=== PATIENT | male | born 2000 | race Caucasian/White ===

== ENCOUNTER 2020-01-24 01:56 | Emergency (ER) | payer MEDICAID ==
[~2020-01-24] VITALS: Ht 172.7 cm; Wt 100.0 kg
[2020-01-24] MEDS ORDERED: KETOROLAC 60MG/2ML VIAL IM STA (02:28)
[2020-01-24 02:50] LABS: CHLORIDE 105 mEq/L (98-107)
[2020-01-24 02:55] LABS: ETHANOL BLOOD < 10 mg/dL
[2020-01-24 03:03] LABS: BASOPHILS % 0.5 % (0.0-2.0); EOSINOPHILS % 2.8 % (0.0-5.0); HEMOGLOBIN. 15.7 g/dL (14.0-18.0); LYMPHOCYTES % 37.5 % (20.0-50.0); MEAN CORPUSCULAR HEMOGLOBIN 29.1 pg (28.0-32.0); MEAN CORPUSCULAR VOLUME 85.1 fL (80.0-94.0); MEAN PLATELET VOLUME 8.9 fl (7.4-10.4); MONOCYTES % 6.5 % (2.0-8.0); NEUTROPHILS % 52.7 % (40.0-76.0); PLATELET 226 x1000/uL (130-400); RED BLOOD CELL COUNT 5.41 mill/uL (4.7-6.1)
[2020-01-24 03:31] LABS: CLARITY URINE CLEAR (CLEAR); COLOR URINE YELLOW (YELLOW); KETONES URINE NEGATIVE (NEGATIVE); LEUKOCYTE ESTERASE URINE NEGATIVE (NEGATIVE); NITRITE URINE NEGATIVE (NEGATIVE); OCCULT BLOOD URINE NEGATIVE (NEGATIVE); PH URINE 6.5 (4.5-8.0); PROTEIN URINE NEGATIVE (NEGATIVE); SPECIFIC GRAVITY URINE 1.023 (1.005-1.030); UROBILINOGEN URINE 0.2 E.U./dL (0.2-1.0)
[2020-01-24 03:41] LABS: *AMPHETAMINES SCREEN URINE NEGATIVE (NEGATIVE); *BARBITURATES SCREEN URINE NEGATIVE (NEGATIVE); *BENZODIAZEPINES SCREEN URINE NEGATIVE (NEGATIVE); *COCAINE SCREEN URINE NEGATIVE (NEGATIVE)
[2020-01-24 03:42] LABS: CANNABINOID URINE SCREEN PRESUMTIVE POSITIVE (NEGATIVE); METHADONE URINE SCREEN NEGATIVE (NEGATIVE); OPIATES URINE SCREEN NEGATIVE (NEGATIVE); PHENCYCLIDINE URINE SCREEN NEGATIVE (NEGATIVE)
[2020-01-24] MEDS ORDERED: DOCUSATE SODIUM 100MG CAPSULE PO ONE (04:00)
[2020-01-24 04:09] VITALS: BP 140/81
== END 2020-01-24 04:12 | disposition home or self-care (01) ==
LOC: ER 01:56
DX: R10.13 Epigastric pain (principal); R11.10 Vomiting, unspecified; F12.10 Cannabis abuse, uncomplicated; K59.00 Constipation, unspecified
CPT/HCPCS: 36415; 74018; 80053; 80305; 80320; 81003; 83690; 85025; 93005; 96372; 99285; J1885; G0480

== ENCOUNTER → 2020-04-08 | Emergency (ER) | payer MEDICAID ==
[~2020-04-08] VITALS: Ht 172.7 cm; Wt 97.0 kg
[~2020-04-08] MED LIST: DICYCLOMINE 10 MG/5 ML ORAL SYR PO STA; LACTULOSE 20G/30ML UDC PO ONE; MAGNESIUM CITRATE 300ML SOLUTION PO NR; MAGNESIUM CITRATE 300ML SOLUTION PO ONE; MAGNESIUM/ALUMINUM HYDROXIDE/SIMETHICONE 30ML UDC PO STA; VISCOUS LIDOCAINE 2% 15 ML UDC PO STA
[2020-04-08 14:48] VITALS: BP 142/87
== END ==
LOC: ER 14:40
DX: K59.00 Constipation, unspecified (principal); F12.10 Cannabis abuse, uncomplicated
CPT/HCPCS: 71045; 74018; 93005; 99284

== ENCOUNTER 2020-06-08 17:52 | Emergency (ER) | payer MEDICAID ==
[~2020-06-08] VITALS: Ht 172.7 cm; Wt 92.0 kg
[2020-06-08] MEDS ORDERED: SODIUM CHLORIDE 0.9% 1,000 ML IV ONE (18:45)
[2020-06-08] MEDS ORDERED: DIPHENHYDRAMINE 50MG/ML VIAL IV ONE (18:45)
[2020-06-08] MEDS ORDERED: METOCLOPRAMIDE HCL 10MG/2ML VIAL IV ONE (18:45)
[2020-06-08 19:09] LABS: BASOPHILS % 0.2 % (0.0-2.0); EOSINOPHILS % 3.1 % (0.0-5.0); HEMATOCRIT. 46.8 % (42.0-52.0); LYMPHOCYTES % 42.3 % (20.0-50.0); MEAN CORPUSCULAR HEMOGLOBIN 29.2 pg (28.0-32.0); MEAN CORPUSCULAR VOLUME 85.8 fL (80.0-94.0); MEAN PLATELET VOLUME 9.1 fl (7.4-10.4); MONOCYTES % 5.6 % (2.0-8.0); NEUTROPHILS % 48.8 % (40.0-76.0); PLATELET 206 x1000/uL (130-400); RED BLOOD CELL COUNT 5.46 mill/uL (4.7-6.1); RED CELL DISTRIBUTION WIDTH 13.9 % (11.6-14.6)
[2020-06-08 19:14] LABS: CHLORIDE 106 mEq/L (98-107)
[2020-06-08 19:17] LABS: ETHANOL BLOOD < 10 mg/dL
[2020-06-08 19:28] LABS: *AMPHETAMINES SCREEN URINE NEGATIVE (NEGATIVE); *BARBITURATES SCREEN URINE NEGATIVE (NEGATIVE)
[2020-06-08 19:29] LABS: *BENZODIAZEPINES SCREEN URINE NEGATIVE (NEGATIVE); *COCAINE SCREEN URINE NEGATIVE (NEGATIVE); METHADONE URINE SCREEN NEGATIVE (NEGATIVE); OPIATES URINE SCREEN NEGATIVE (NEGATIVE); PHENCYCLIDINE URINE SCREEN NEGATIVE (NEGATIVE)
[2020-06-08 19:30] LABS: CANNABINOID URINE SCREEN PRESUMTIVE POSITIVE (NEGATIVE)
[2020-06-08 22:28] VITALS: BP 122/71
== END 2020-06-08 22:45 | disposition home or self-care (01) ==
LOC: ER 17:52
DX: R51.9 Headache, unspecified (principal); M54.2 Cervicalgia; F10.239 Alcohol dependence with withdrawal, unspecified; Y90.0 Blood alcohol level of less than 20 mg/100 ml
CPT/HCPCS: 36415; 70450; 80053; 80305; 80320; 84484; 85025; 93005; 96361; 96374; 96375; 99285; J1200; J2765; J7030; G0480

== ENCOUNTER 2022-03-19 14:11 | Emergency (ER) | payer MEDICAID ==
[~2022-03-19 14:11] MED LIST changes: -DICYCLOMINE 10 MG/5 ML ORAL SYR PO STA; +ERYT1OIN6 RIGHTEYE; -LACTULOSE 20G/30ML UDC PO ONE; -MAGNESIUM CITRATE 300ML SOLUTION PO NR; -MAGNESIUM CITRATE 300ML SOLUTION PO ONE; -MAGNESIUM/ALUMINUM HYDROXIDE/SIMETHICONE 30ML UDC PO STA; -VISCOUS LIDOCAINE 2% 15 ML UDC PO STA
== END 2022-03-19 15:09 | disposition left against medical advice (07) ==
LOC: ER 14:12
DX: Z53.21 Procedure and treatment not carried out due to patient leaving prior to being seen by health care provider (principal)